=== PATIENT | female | born 1970 | race Caucasian/White ===

== ENCOUNTER → 2023-08-29 07:54 | Outpatient (REF) | payer OTHER, SELFPAY | LOC: WDC 07:54 | PROVIDERS: ATTENDING PHYSICIAN Internal Medicine Hematology & Oncology; FAMILY PHYSICIAN Family Medicine | DX: Z12.31 Encounter for screening mammogram for malignant neoplasm of breast (principal); Z85.3 Personal history of malignant neoplasm of breast; D05.11 Intraductal carcinoma in situ of right breast | CPT/HCPCS: 77063; 77067 ==

== ENCOUNTER 2024-08-21 00:11 | Emergency (ER) | payer OTHER, SELFPAY ==
[2024-08-21 00:26] VITALS: BP 128/77
[2024-08-21 04:19] VITALS: BP 110/71
[2024-08-21 04:30] LABS: % Basophils 0.6 % (0-2); % Immature Granulocytes 0.6 % (0-0.5); % Lymphocytes 10.4 % (20.5-51.1); % Monocytes 7.8 % (1.7-9.3); % Neutrophils 80.6 % (42.2-75.2); Absolute Lymphocytes 0.5 10^3/uL (1.2-3.4); Absolute Monocytes 0.4 10^3/uL (0.1-0.6); Absolute Neutrophils 3.7 10^3/uL (1.4-6.5); Hematocrit 40.3 % (37.0-47.0); Hemoglobin 13.1 g/dL (12.0-16.0); Mean Corp Hgb Conc. 32.5 g/dL (33.0-37.0); Mean Corpuscular Hgb 25.8 pg (27.0-31.0); Mean Corpuscular Volume 79.5 fL (81.0-99.0); Mean Platelet Volume 11.6 fL (7.4-10.4); Nucleated Red Blood Cells % 0 %; Platelet Count 185 10^3/uL (130-400); Red Blood Cell Count 5.07 10^6/uL (4.20-5.40); White Blood Cell Count 4.6 10^3/uL (4.8-10.8)
[2024-08-21 04:55] LABS: ALT (SGPT) 21 U/L (0-35); AST (SGOT) 27 U/L (14-36); Albumin 4.9 g/dl (3.5-5.0); Alkaline Phosphatase 82 U/L (38-126); Blood Urea Nitrogen 12 mg/dl (7-17); Calcium 9.2 mg/dl (8.4-10.2); Carbon Dioxide 28 mmol/L (22-30); Chloride 97 mmol/L (98-107); Glucose 121 mg/dl (70-99); Potassium 3.8 mmol/L (3.5-5.1); Sodium 136 mmol/L (135-145); Total Bilirubin 0.8 mg/dl (0.2-1.3); Total Protein 8.1 g/dl (6.3-8.2); eGFR > 60.00
[2024-08-21 05:06] LABS: NT-proBNP 73.2 pg/ml; Troponin I < 0.012 ng/ml
[2024-08-21 05:28] VITALS: BP 120/71
[2024-08-21 05:34] VITALS: BP 120/71; BMI 24.9
[2024-08-21 06:00] VITALS: BP 129/71
[2024-08-21] MEDS: MAALOX 50 PO (06:06)
--- NOTE | 2024-08-21 06:10 | ED.GENMED ---
History of Present Illness
<Austin Luo MD, Resident - Last Filed: 08/21/24 07:20>
General
Chief Complaint: Chest Pain
Source: patient and spouse
Time Seen by Provider: 08/21/24 06:03
Nursing documentation reviewed up to this point in time: agreed with
History of Present Illness
History of Present Illness:
53-year-old female with PMH of hiatal hernia, GERD, Stahl's esophagus who presented to the emergency department with chest pain and nausea. Patient reports that she was taking Dexlansoprazole and Pepcid for the past 2 years but discovered that
this stopped working. She was recently prescribed Voquezna which she has taken for the past 5 days without any relief of her symptoms. Patient follows Dr. Schwartz and had an EGD in November 2022 which was positive for hiatal hernia. She was told that
she would need hiatal hernia repair and has not been able to schedule the appointment yet.
Past History
<Austin Luo MD, Resident - Last Filed: 08/21/24 07:20>
Past History
ED Past Medical History: Other (Chronic back pain)
ED Past Surgical History: None
Social History
Tobacco: Non-smoker
Alcohol: Occasional
Drug: None
Personal:
Living: with family
Employment: Employed
Family History
Family History: Cancer (Mother had ovarian cancer)
Review of Systems
<Austin Luo MD, Resident - Last Filed: 08/21/24 07:20>
Review of Systems
All Other Systems: ROS reviewed and negative except as documented in HPI and ROS
Phy Exam
<Austin Luo MD, Resident - Last Filed: 08/21/24 07:20>
Physical Exam
Physical Exam:
GENERAL: Alert and oriented x 3, NAD. Afebrile
HEAD: NC/AT
OROPHARYNX: no exudate or ulcers.
EYE: pupils equal and reactive extraocular muscles
NECK: Supple, no significant adenopathy.
CARDIAC: Regular rate and rhythm without any obvious murmurs.
LUNGS: Normal breath sounds,normal-no rhonchi. Not bronchospastic.
ABDOMEN: Soft, NT, ND, no peritoneal signs.
NEUROLOGICAL: Alert and oriented x 3. No focal neurological deficit.
SKIN: Warm and dry, no rash or lesion, no discoloration, skin intact.
MUSCULOSKELETAL: Full range of motion of extremities.
LYMPHATIC:No lymph nodes on his neck or supraclavicular area.
PSYCH: Normal and appropriate interaction.
Scores
<Austin Luo MD, Resident - Last Filed: 08/21/24 07:20>
Heart Score for Chest Pain Patients
STEMI patient?: Not applicable
<Luzmaria Coreas, DO - Last Filed: 08/21/24 07:32>
Heart Score for Chest Pain Patients
STEMI patient?: No
History: Slightly or Non-Suspicious
ECG: Normal
Age: >45 - <65 years
Risk Factors: No Risk Factors
Troponin: </= Normal Limit
Heart Score for Chest Pain Patients: 1
Heart Score Risk: 2.5% MACE over next 6 weeks
Course
<Austin Luo MD, Resident - Last Filed: 08/21/24 07:20>
Orders/Labs/Results
Orders:
Orders
08/21/24 00:19
Electrocardiogram (*1) Urgent
Reason for Study: Other
Other Reason for Exam: Respiratory Distress
Cardiac Monitoring- Treatment ONCE
EKG- Treatment ONCE
IV Insert/Care/Rem.- Treatment PRN
CR Chest - 2 Views Urgent
Comment:
Reason For Exam: respiratory distress
O2 Therapy [RESP] Urgent
Titrate/Wean O2 to maintain O2 sat greater than (%): 93
Special Instructions: TO MAINTAIN CONTINUOUS O2 SATS >/= 93%
Pulse Ox/cont/shift [RESP] Urgent
Quantity: 1
Special Instructions: continuous pulse ox
08/21/24 04:16
Complete Blood Count/With Diff Urgent
Comprehensive Metabolic Panel Urgent
NT-proBNP Urgent
Troponin I Urgent
08/21/24 05:57
Mag Hydrox/Al Hydrox/Simeth [Maalox] 30 ml Phenobarb/Hyoscy/Atropine/Scop [] 10 ml Viscous Lidocaine 2% [Xylocaine Viscous Cup] 10 ml PO NOW
08/21/24 06:03
Mag Hydrox/Al Hydrox/Simeth [Maalox] 30 ml .ROUTE .STK-MED ONE
Phenobarb/Hyoscy/Atropine/Scop [] 10 ml .ROUTE .STK-MED ONE
08/21/24 06:04
Viscous Lidocaine 2% [Xylocaine Viscous Cup] 15 ml .ROUTE .STK-MED ONE
08/21/24 06:31
Sucralfate Suspension [Carafate Suspension] 1 gm PO NOW STA
Abnormal Lab Results
08/21/24
04:16
WBC 4.6 L 10^3/uL
(4.8-10.8)
MCV 79.5 L fL
(81.0-99.0)
MCH 25.8 L pg
(27.0-31.0)
MCHC 32.5 L g/dL
(33.0-37.0)
MPV 11.6 H fL
(7.4-10.4)
Absolute Lymphs (auto) 0.5 L 10^3/uL
(1.2-3.4)
Immature Gran % 0.6 H %
(0-0.5)
Neutrophils % 80.6 H %
(42.2-75.2)
Lymphocytes % 10.4 L %
(20.5-51.1)
Chloride 97 L mmol/L
(98-107)
Glucose 121 H mg/dl
(70-99)
08/21/24 04:16
08/21/24 04:16
Vital Signs
Initial and Last Documented VS:
Initial Vital Signs
Temp Pulse Resp BP Pulse Ox
99.8 F 102 20 128/77 96
08/21/24 00:26 08/21/24 00:26 08/21/24 00:26 08/21/24 00:26 08/21/24 00:26
Last Documented Vital Signs
Temp Pulse Resp BP Pulse Ox
99.2 F 99 15 129/71 100
08/21/24 04:19 08/21/24 06:00 08/21/24 06:00 08/21/24 06:00 08/21/24 06:00
<Luzmaria Coreas, DO - Last Filed: 08/21/24 07:32>
Orders/Labs/Results
Orders:
Orders
08/21/24 00:19
Electrocardiogram (*1) Urgent
Reason for Study: Other
Other Reason for Exam: Respiratory Distress
Cardiac Monitoring- Treatment ONCE
EKG- Treatment ONCE
IV Insert/Care/Rem.- Treatment PRN
CR Chest - 2 Views Urgent
Comment:
Reason For Exam: respiratory distress
O2 Therapy [RESP] Urgent
Titrate/Wean O2 to maintain O2 sat greater than (%): 93
Special Instructions: TO MAINTAIN CONTINUOUS O2 SATS >/= 93%
Pulse Ox/cont/shift [RESP] Urgent
Quantity: 1
Special Instructions: continuous pulse ox
08/21/24 04:16
Complete Blood Count/With Diff Urgent
Comprehensive Metabolic Panel Urgent
NT-proBNP Urgent
Troponin I Urgent
08/21/24 05:57
Mag Hydrox/Al Hydrox/Simeth [Maalox] 30 ml Phenobarb/Hyoscy/Atropine/Scop [] 10 ml Viscous Lidocaine 2% [Xylocaine Viscous Cup] 10 ml PO NOW
08/21/24 06:03
Mag Hydrox/Al Hydrox/Simeth [Maalox] 30 ml .ROUTE .STK-MED ONE
Phenobarb/Hyoscy/Atropine/Scop [] 10 ml .ROUTE .STK-MED ONE
08/21/24 06:04
Viscous Lidocaine 2% [Xylocaine Viscous Cup] 15 ml .ROUTE .STK-MED ONE
08/21/24 06:31
Sucralfate Suspension [Carafate Suspension] 1 gm PO NOW STA
Abnormal Lab Results
08/21/24
04:16
WBC 4.6 L 10^3/uL
(4.8-10.8)
MCV 79.5 L fL
(81.0-99.0)
MCH 25.8 L pg
(27.0-31.0)
MCHC 32.5 L g/dL
(33.0-37.0)
MPV 11.6 H fL
(7.4-10.4)
Absolute Lymphs (auto) 0.5 L 10^3/uL
(1.2-3.4)
Immature Gran % 0.6 H %
(0-0.5)
Neutrophils % 80.6 H %
(42.2-75.2)
Lymphocytes % 10.4 L %
(20.5-51.1)
Chloride 97 L mmol/L
(98-107)
Glucose 121 H mg/dl
(70-99)
08/21/24 04:16
08/21/24 04:16
Vital Signs
Initial and Last Documented VS:
Initial Vital Signs
Temp Pulse Resp BP Pulse Ox
99.8 F 102 20 128/77 96
08/21/24 00:26 08/21/24 00:26 08/21/24 00:26 08/21/24 00:26 08/21/24 00:26
Last Documented Vital Signs
Temp Pulse Resp BP Pulse Ox
99.2 F 99 15 129/71 100
08/21/24 04:19 08/21/24 06:00 08/21/24 06:00 08/21/24 06:00 08/21/24 06:00
<Austin Luo MD, Resident - Last Filed: 08/21/24 07:20>
MDM/Problems Addressed
Chronic conditions affecting care:
53-year-old female with PMH of GERD, hiatal hernia with Stahl's esophagus who presented to the emergency department with chest pain and nausea. She was recently prescribed Voquenza by her GI doctor due to failure to control symptoms with Dexilant
a.m. and Pepcid p.m. while in the ED, her labs were unremarkable, troponin was normal and her EKG reports normal sinus rhythm.
Differential diagnosis includes worsening GERD, esophagitis. Will treat with green grabber and sucralfate and monitor. Given history of 4 cm hiatal hernia noted on endoscopy 2022, patient may benefit from hiatal hernia repair outpatient.
<Austin Luo MD, Resident - Last Filed: 08/21/24 07:20>
*Critical Care Note
Total Time (30-74mins, 75-104mins- exclusive of procedures): Not Applicable
<Luzmaria Coreas DO - Last Filed: 08/21/24 07:32>
*Radiology
Radiology exam reviewed: preliminary read by ED provider (Chest x-ray is unremarkable.)
*Pulse Oximetry
Patient hypoxic: no
*EKG
Interpreted by ED Provider?: Yes
Interpretation: normal
Comparison EKG: no changes
Rate: normal
Rhythm: sinus
Tiline: normal axis
Interval: normal interval
QRS Pattern: normal QRS
Ischemia: no ischemia
*Unishear Operator Interpretation
Rate: normal
Interpretation: normal
Rhythm: sinus
ED Attending Note
<Austin Luo MD, Resident - Last Filed: 08/21/24 07:20>
-
Portions of this chart may have been created with voice recognition software.� Occasional wrong word or��sound alike� substitutions may have occurred due to the inherent limitations of voice recognition software.
<Luzmaria Coreas DO - Last Filed: 08/21/24 07:32>
ED Attending Note
Patient seen and examined by attending physician: Yes
I performed a history and physical exam of patient and discussed management with resident, I reviewed resident's note and agree with documented findings and plan of care.: Yes
ED Attending Note:
This is a 53-year-old woman who has a longstanding history of chronic GERD, hiatal hernia, follows with GI with upper endoscopy apparently 2 years ago. Had been doing fairly well with Dexilant but notes increased GERD symptoms, lower substernal
chest pain, persistent over the past several months. Placed a call to her assignment editor and was provided samples of Voquezna which she began 5 to 6 days ago. Thus far no improvement. Lower substernal chest pain is worse with eating or
drinking and she has had some nausea but no vomiting. She admits to decreased appetite for solids over this past week but has been tolerating liquids well. She denies abdominal pain, no diarrhea or constipation, no fevers or chills, no cough no
shortness of breath.
Current symptoms feel very similar to her ongoing GERD episodes.
53-year-old woman appears her stated age, bright and alert, pleasant, appears in no acute distress.
Heart is regular rate and rhythm. No murmur no rub.
Lungs are clear to auscultation.
Abdomen is soft without appreciable tenderness.
Concern for exacerbation of GERD/gastritis, peptic ulcer, exacerbation of hiatal hernia. It is reassuring that patient has been tolerating liquids, has had no vomiting thus nothing to suggest incarcerated hernia, volvulus, etc.
ACS is also a consideration.
Labs are unremarkable as is troponin. EKG is unremarkable and unchanged from previous.
Will check chest x-ray.
Will trial GI cocktail as well as Carafate.
07:25
Patient reports no relief after GI cocktail but mild relief after Carafate.
Overall appears comfortable. Tolerating clear liquids well.
Chest x-ray is unremarkable.
Will discharge to home with recommendations that she continue Voquezna and will add a course of Carafate.
Recommend prompt follow-up with GI.
Return precautions discussed.
Discharge Plan
Departure
Patient Disposition: Home (Routine Discharge)
Date of Disposition: 08/21/24
Time of Disposition: :
Patient with high blood pressure during this ER visit?: No
Condition: Good
Discharge Problem:
Exacerbation of GERD/gastritis
Instructions: Acid Reflux and GERD in Adults (DC)
Prescriptions:
New
sucralfate [Carafate] 1 gram tablet
1 g PO QIDPRN PRN (Reason: ACID REFLUX) Qty: 120 0RF
Referrals:
Juan Pablo Schwartz MD [Active] - Call in 1-3 days for appt
Mak Muller DO [Family Provider] - Call in 1-3 days for appt
Interventions
Interventions:
*Risk Screen - Suicide Last Done: 08/21/24 00:26
*General Assessment Last Done: 08/21/24 00:26
*Neglect/Abuse Screening Last Done: 08/21/24 00:26
ED- Fall Risk Assessment Last Done: 08/21/24 00:26
*ED COVID-19 Vaccine History Last Done: 08/21/24 00:26
Discharge Date and Time
Print Language: DJIBOUTIAN
[2024-08-21] MEDS: CARAFATE SUSPENSION 1 GM PO (07:03)
[2024-08-21 07:44] VITALS: BP 122/97
== END 2024-08-21 08:09 | disposition home or self-care (01) ==
LOC: EMR 00:11
PROVIDERS: EMERGENCY PHYSICIAN Emergency Medicine; FAMILY PHYSICIAN Family Medicine
DX: K29.70 Gastritis, unspecified, without bleeding (principal); K21.9 Gastro-esophageal reflux disease without esophagitis; K44.9 Diaphragmatic hernia without obstruction or gangrene; Z87.19 Personal history of other diseases of the digestive system
CPT/HCPCS: 99285; 71046; 80053; 83880; 84484; 85025; 93005

== ENCOUNTER → 2024-08-25 11:21 | Outpatient (REF) | payer OTHER, SELFPAY | LOC: HWRAD 11:21 | PROVIDERS: ATTENDING PHYSICIAN Internal Medicine Gastroenterology; FAMILY PHYSICIAN Family Medicine | DX: R10.13 Epigastric pain (principal) | CPT/HCPCS: 76700 ==

== ENCOUNTER → 2024-09-07 17:27 | Outpatient (REF) | payer OTHER, SELFPAY | LOC: WDC 17:27 | PROVIDERS: ATTENDING PHYSICIAN Obstetrics & Gynecology; FAMILY PHYSICIAN Family Medicine | DX: Z12.31 Encounter for screening mammogram for malignant neoplasm of breast (principal) | CPT/HCPCS: 77063; 77067 ==